=== PATIENT | male | born 1975 | race Hispanic/Latino ===

== ENCOUNTER 2019-03-13 09:54 | Outpatient (CLI) | payer BC ==
--- NOTE | 2019-03-13 10:32 | RAD ---
Lumbar spine 3 views: 03/13/2019 COMPARISON: None HISTORY: Low back pain, left-sided radiculopathy FINDINGS: There is no anterolisthesis or retrolisthesis noted within the lumbar spine. There is mild disc space narrowing with anterior osteophyte formation at L1-2, L2-3, L3-4, and L5-S1. There is also multilevel disc space narrowing and anterior osteophyte formation within the lower thoracic spine. IMPRESSION: Degenerative change with no acute osseous abnormality.
--- NOTE | 2019-03-13 10:39 | RAD ---
X-RAY SACRUM AND COCCYX STANDARD: DATE: 03/13/2019 12:00 AM. INDICATION: Low back pain. COMPARISON: None.. FINDING: No acute fracture or subluxation is evident. There is mild disc degenerative disease at L4-5 and L5-S 1. Sacroiliac joints appear radiographically within normal limits. IMPRESSION: Sacroiliac joints appear radiographically normal. There is mild disc degenerative disease of the lowe r lumbar spine. Transcribed Date/Time: 03/13/2019 11:19 AM
== END 2019-03-13 09:55 | disposition home or self-care (01) ==
LOC: BICRAD 09:54
PROVIDERS: ATTEND Specialist
DX: M54.5 Low back pain (principal); M51.36 Other intervertebral disc degeneration, lumbar region; M47.816 Spondylosis without myelopathy or radiculopathy, lumbar region
CPT/HCPCS: 72100; 72220